=== PATIENT | male | born 1950 | race Caucasian/White ===

== ENCOUNTER 2016-10-26 17:16 | Emergency (ER) | payer OTHER ==
[2016-10-26 17:26] LABS: EOSINOPHIL (%) 1.6 % (0-5); EOSINOPHIL COUNT 0.1 K/uL (0-0.3); HEMATOCRIT 40.4 % (38.0-50.0); IMMATURE GRANULOCYTE (%) 0.8 % (0.0-0.7); IMMATURE GRANULOCYTE COUNT 0.1 K/uL; INSTRUMENT ABS NEUTROPHIL CT 6.8 K/uL; LYMPHOCYTE COUNT 1.4 K/uL (1.0-2.8); MCH 29.8 PG (29.0-34.0); MCHC 33.9 G/DL (30.0-36.0); MEAN PLAT.VOLUME 9.9 uM^3 (9.0-12.4); MONOCYTE (%) 6.5 % (3-12); MONOCYTE COUNT 0.6 K/uL (0-0.8); NEUTROPHIL (%) 75.6 % (45-76); NEUTROPHIL COUNT 6.8 K/uL (1.8-6.4); PLATELET COUNT 143 K/uL (156-360); RED BLOOD COUNT 4.59 M/uL (4.00-5.50)
[2016-10-26 17:36] LABS: AMYLASE 44 IU/L (1-118); CHLORIDE 106 mEq/L (99-109); POTASSIUM 3.8 mEq/L (3.7-5.4); SODIUM 140 mEq/L (136-147)
[2016-10-26 17:38] LABS: GLUCOSE 126 mg/dL (70-99)
[2016-10-26 17:39] LABS: ANION GAP 10 MEQ/L (2-14)
[2016-10-26 17:41] LABS: SERUM ETHYL ALCOHOL < 10 mg/dL
[2016-10-26 17:42] LABS: GFR ESTIMATE (CALCULATED) > 59 mL/min/
[2016-10-26 17:43] LABS: UREA NITROGEN (BUN) 21 mg/dL (9-23)
[2016-10-26 17:45] LABS: LIPASE 24 U/L (1.0-51.0)
[2016-10-26] MEDS ORDERED: PERCOCET 5/31 TABLET PO (18:31)
[2016-10-26] MEDS ORDERED: NAPROSYN500 MG PO (18:31)
== END 2016-10-26 19:04 | disposition home or self-care (01) ==
LOC: TRA 17:16
PROVIDERS: Emergency Medicine
DX: M54.2 Cervicalgia (principal); M54.5 Low back pain; V49.40XA Driver injured in collision with unspecified motor vehicles in traffic accident, initial encounter
CPT/HCPCS: 70450; 71010; 72125; 72131; 74176; 80048; 81003; 82150; 83690; 85025; 86900; 86901; 99281; 99284; G0480